=== PATIENT | female | born 1955 | race Caucasian/White ===

== ENCOUNTER 2024-05-10 20:14 | Outpatient (CLI) | payer MEDICARE | END 2024-05-10 23:59 | disposition critical access hospital (66) | LOC: EMS 20:14 | DX: R55 Syncope and collapse (principal); R47.81 Slurred speech | CPT/HCPCS: A0425; A0429 ==

== ENCOUNTER 2024-05-10 20:44 | Emergency (ER) | payer MEDICARE ==
--- NOTE | 2024-05-10 20:45 | ED Physician Documentation ---
History of Present Illness - Stated complaint Stated Complaint: SYNCOPE - Additonal information Additional information: 69-year-old female with history of syncopal episodes in the past presents emergency department for syncope. Patient says that she was standing at counter cooking dinner for her and she started to feel like she was in a pass out. She walked over to the chair and lost consciousness for about 15 seconds according to . She says this happened once about 4 years ago exact same scenario she was standing for too long and went and sat down and lost consciousness. She did not fall she did hit her head since then she has been feeling okay just little bit fatigued and rundown. PD PAST MEDICAL HISTORY - Allergies Allergies/Adverse Reactions: Allergies Allergy/AdvReac Type Severity Reaction Status Date / Time No Known Drug Allergies Allergy Verified 05/10/24 20:46 PD ED PE NORMAL - Vitals Vital signs reviewed: Yes - General General: Alert and oriented X 3, No acute distress, Well developed/nourished - HEENT HEENT: Atraumatic, PERRL, EOMI - Neck Neck: Supple, no meningeal sign - Cardiac Cardiac: RRR, Other ([place]) - Respiratory Respiratory: No respiratory distress, Clear bilaterally - Abdomen Abdomen: Normal bowel sounds, Soft, Non tender, No organomegaly - Derm Derm: Normal color, Warm and dry, No rash - Extremities Extremities: No deformity, No edema, No calf tenderness / cord - Neuro Neuro: Alert and oriented X 3, rn medical inpatient services 2-12 intact, No motor deficit, No sensory deficit, Normal speech Eye Opening: Spontaneous Motor: Obeys Commands Verbal: Oriented GCS Score: 15 - Psych Psych: Normal mood, Normal affect Results - Vitals Vitals: Vital Signs - 24 hr 05/10/24 05/10/24 05/10/24 20:46 20:59 22:01 Temperature 36.6 C 36.5 C Heart Rate 48 L 52 L 56 L Respiratory 14 13 16 Rate Blood Pressure 148/79 H 122/70 118/70 O2 Saturation 97 94 96 Oxygen O2 Source Room air - EKG (time done) 2045 EKG releavant findings:: EKG personally interpreted by author of this note. Relevant findings are: Rate: Rate (enter#) (49), [place] Rhythm: Sinus bradycardia [place]: Normal Intervals: Normal [place] QRS: Normal Ischemia: Normal ST segments, Other (probable left ventricular hypertrophy) - Labs Labs: Laboratory Tests 05/10/24 05/10/24 05/10/24 20:59 20:59 20:59 WBC 6.1 RBC 4.26 Hgb 12.5 Hct 38.5 MCV 90.4 MCH 29.3 MCHC 32.5 RDW 13.5 Plt Count 261 MPV 10.7 Neut # (Auto) 3.3 Lymph # (Auto) 2.0 [place] # (Auto) 0.5 Eos # (Auto) 0.2 Baso # (Auto) 0.1 Absolute Nucleated RBC 0.00 Nucleated RBC % 0.0 Sodium 137 Potassium 3.6 Chloride 101 Carbon Dioxide 29 Anion Gap 7.0 BUN 13 Creatinine 0.9 Estimated GFR (MDRD) 62 L Glucose 94 Calcium 9.4 Magnesium 1.6 L Total Bilirubin 0.5 AST 14 ALT 9 L Alkaline Phosphatase 46 Troponin I High Sens 3.8 Total Protein 6.3 L Albumin 4.0 Globulin 2.3 Albumin/Globulin Ratio 1.7 Lipase 25 PD Medical Decision Making - ED course ED course: 69 yo female here for syncopal episode. Given history, exam and workup, low suspicion for HF, ICH (no trauma, headache), seizure (no witnessed seizure like activity, no postictal period, tongue laceration, bladder incontinence), stroke (no focal neuro deficits), HOCM (no murmur, family history of sudden ), ACS (neg troponin, no anginal pain), aortic dissection (no chest pain), malignant arrhythmia on ekg or any family history of sudden , or GI bleed (stable hgb). Low suspicion for PE given normal vital signs, absence of chest pain or dyspnea, no evidence of DVT, no recent surgery/immobilization. Based on [place] syncope rule, patient is low risk and well appearing here, plan to discharge the patient home with PCP follow up. Breeding syncope risk score is -3 points. Pt understands return precautions and all questions have been answered. Departure - Departure Disposition: 01 Home, Self Care Clinical Impression: Vasovagal syncope Instructions: ED Syncope Vasovagal Comments: Thank you for trusting us with your care, we have evaluated you for your syncopal episode that you had at home also known as passing out. Your labs are complete for further evaluation you have no anemia no electrolyte abnormalities and normal EKG. Your heart rate is a little on the low side please follow-up with your primary care provider to let them know about today's ER visit and please do not hesitate to come back into the emergency department for any worsening symptoms Or if you have any other syncopal episodes again. Forms: PCP List Discharge Date/Time: 05/10/24 21:50
[2024-05-10 21:03] LABS: BASOPHILS # (AUTO) 0.1 10^3/uL (0.0-0.1); BASOPHILS % (AUTO) 0.8 %; EOSINOPHILS # (AUTO) 0.2 10^3/uL (0.0-0.7); EOSINOPHILS % (AUTO) 2.8 %; HCT - HEMATOCRIT 38.5 % (37.0-47.0); HGB - HEMOGLOBIN 12.5 g/dL (12.0-16.0); LYMPHOCYTES % (AUTO) 33.1 %; MEAN CORPUSCULAR HEMOGLOBIN 29.3 pg (27.0-31.0); MEAN CORPUSCULAR HGB CONC 32.5 g/dL (32.0-36.0); MEAN CORPUSCULAR VOLUME 90.4 fL (81.0-99.0); MEAN PLATELET VOLUME 10.7 fL (7.9-10.8); MONOCYTES # (AUTO) 0.5 10^3/uL (0.0-1.0); MONOCYTES % (AUTO) 8.8 %; NEUTROPHILS # (AUTO) 3.3 10^3/uL (1.5-6.6); PLT - PLATELET COUNT 261 10^3/uL (130-450); RED BLOOD COUNT 4.26 10^6/uL (4.20-5.40); RED CELL DISTRIBUTION WIDTH 13.5 % (12.0-15.0); WHITE BLOOD COUNT 6.1 x10^3/uL (4.8-10.8)
[2024-05-10 21:19] LABS: ALBUMIN/GLOBULIN RATIO 1.7 (1.0-2.2); BILIRUBIN,TOTAL 0.5 mg/dL (0.2-1.0); CALCIUM 9.4 mg/dL (8.5-10.3); CREATININE 0.9 mg/dL (0.6-1.3); MAGNESIUM 1.6 mg/dL (1.7-2.3); POTASSIUM 3.6 mmol/L (3.5-4.5); TOTAL PROTEIN 6.3 g/dL (6.4-8.9)
[2024-05-10] MEDS: SODIUM CHLORIDE 0.9% 1,000 ML IV ONE (21:19)
[2024-05-10 22:12] VITALS: BP 118/70; O2SAT 96
== END 2024-05-10 21:50 | disposition home or self-care (01) ==
LOC: ED 20:44
DX: R55 Syncope and collapse (principal); R00.1 Bradycardia, unspecified
CPT/HCPCS: 36415; 80053; 83690; 83735; 84484; 85025; 93005; 99283